=== PATIENT | male | born 1975 | race Two or more races ===

== ENCOUNTER 2018-07-14 16:39 | Emergency (ER) | payer OTHER ==
[2018-07-14 17:07] VITALS: BP 132/81; PULSE 80; TEMP 98.4; BMI 25.8
--- NOTE | 2018-07-14 17:17 | PDOC ---
History of Present Illness - General History Source: Patient Exam Limitations: No Limitations - History of Present Illness Initial Comments: 07/14/18 17:18 The patient is a 43-year-old male, with no past medical history, who presents to the ED with RT-sided abdominal pain. The patient states that he has been experiencing heartburn for the past couple of days, which he has never experienced before. He describes the abdominal pain as intermittent, crampy in sensation, nonradiating, non-reproducible, accompanied by nausea and belching. He reports waking up this morning with the pain and was unable to eat breakfast. He went for a run and felt better so he decided to have some lunch. He reports increased abdominal pain after consuming the food. The patient was not able to pass a full bowel movement this morning, but denies any diarrhea, melena, or hematochezia. He proceeded to Urgent Care who sent the patient to the ER for imaging. He denies having any pain currently. The patient denies any fevers, chills, vomiting, or diarrhea. He denies any chest pain or shortness of breath. Denies any urinary symptoms. Allergies: amoxicillin Social History: None reported. Surgical History: None reported. <Eliane Anna - Last Filed: 07/14/18 17:18> <Twin Hancock S - Last Filed: 07/14/18 18:09> - General Chief Complaint: Pain Stated Complaint: ABD PAIN Time Seen by Provider: 07/14/18 16:57 Past History <Eliane Anna - Last Filed: 07/14/18 17:18> - Past Medical History COPD: No Other medical history: DENIES - Suicide/Smoking/Psychosocial Hx Smoking History: Never smoked Have you smoked in the past 12 months: No Information on smoking cessation initiated: No Hx Alcohol Use: No Drug/Substance Use Hx: No <Twin Hancock S - Last Filed: 07/14/18 18:09> - Past Medical History Allergies/Adverse Reactions: Allergies Allergy/AdvReac Type Severity Reaction Status Date / Time amoxicillin Allergy Rash Verified 07/14/18 16:41 Home Medications: Ambulatory Orders Polyethylene Glycol 3350 [Miralax (For Bowel Prep) -] 17 gm PO DAILY #1 bottle 07/14/18 Review of Systems - Review of Systems Able to Perform ROS?: Yes Comments:: 07/14/18 17:19 GENERAL/CONSTITUTIONAL: No fever or chills. No weakness. HEAD, EYES, EARS, NOSE AND THROAT: No change in vision. No ear pain or discharge. No sore throat. CARDIOVASCULAR: No chest pain or shortness of breath. RESPIRATORY: No cough, wheezing, or hemoptysis. SKIN: No rash GASTROINTESTINAL: (+)RT-sided abdominal pain, nausea, belching. No vomiting, diarrhea or constipation. GENITOURINARY: No dysuria, frequency, or change in urination. MUSCULOSKELETAL: No joint or muscle swelling or pain. No neck or back pain. NEUROLOGIC: No headache, vertigo, loss of consciousness, or change in strength/ sensation. ENDOCRINE: No increased thirst. No abnormal weight change. HEMATOLOGIC/LYMPHATIC: No anemia, easy bleeding, or history of blood clots. ALLERGIC/IMMUNOLOGIC: No hives or skin allergy. <Eliane Anna - Last Filed: 07/14/18 17:18> *Physical Exam - Vital Signs Last Vital Signs Temp Pulse Resp BP Pulse Ox 98.4 F 80 20 132/81 100 07/14/18 16:40 07/14/18 16:40 07/14/18 16:40 07/14/18 16:40 07/14/18 16:40 - Physical Exam Comments: 07/14/18 17:20 GENERAL: Awake, alert, and fully oriented, in no acute distress HEAD: No signs of trauma EYES: PERRLA, EOMI, sclera anicteric, conjunctiva clear ENT: Auricles normal inspection, hearing grossly normal, nares patent, oropharynx clear without exudates. Moist mucosa NECK: Normal ROM, supple, no lymphadenopathy, JVD, or masses LUNGS: Breath sounds equal, clear to auscultation bilaterally. No wheezes, and no crackles HEART: Regular rate and rhythm, normal S1 and S2, no murmurs, rubs or gallops ABDOMEN: (+)Slight hyperactive bowel sounds, mild abdominal distention. Soft, nontender. No guarding, no rebound. No masses. EXTREMITIES: Normal range of motion, no edema. No clubbing or cyanosis. No cords, erythema, or tenderness NEUROLOGICAL: Cranial nerves II through XII grossly intact. Normal speech, normal gait SKIN: Warm, Dry, normal turgor, no rashes or lesions noted <Eliane Anna - Last Filed: 07/14/18 17:18> - Vital Signs Last Vital Signs Temp Pulse Resp BP Pulse Ox 98.4 F 80 20 132/81 100 07/14/18 16:40 07/14/18 16:40 07/14/18 16:40 07/14/18 16:40 07/14/18 16:40 <Twin Hancock - Last Filed: 07/14/18 18:09> *DC/Admit/Observation/Transfer - Attestations Scribe Attestion: 07/14/18 17:23 Documentation prepared by Eliane Anna, acting as resident medical officer for Twin Hancock MD. <Eliane Anna - Last Filed: 07/14/18 17:18> - Discharge Dispostion Decision to Admit order: No <Twin Hancock - Last Filed: 07/14/18 18:09> Diagnosis at time of Disposition: Abdominal pain Qualifiers: Abdominal location: generalized Qualified Code(s): R10.84 - Generalized abdominal pain Constipation Qualifiers: Constipation type: unspecified constipation type Qualified Code(s): K59.00 - Constipation, unspecified - Discharge Dispostion Disposition: HOME Condition at time of disposition: Stable - Prescriptions Prescriptions: Polyethylene Glycol 3350 [Miralax (For Bowel Prep) -] 17 gm PO DAILY #1 bottle - Patient Instructions Printed Discharge Instructions: DI for Abdominal Pain-Adult, DI for Constipation, Increased Dietary Fiber May Improve Constipation Conditions With Pelvic Dilip
[2018-07-14] MEDS ORDERED: MAGNESIUM CITRATE 300 ML BOTTLE PO ONE (18:04)
[2018-07-14] MEDS ORDERED: MAGNESIUM CITRATE 300 ML BOTTLE ONE (18:07)
== END 2018-07-14 18:14 | disposition home or self-care (01) ==
LOC: FER 16:39
DX: R10.84 Generalized abdominal pain (principal); K59.00 Constipation, unspecified
CPT/HCPCS: 74019-TC-FY; 99282-25